=== PATIENT | female | born 1970 | race Caucasian/White ===

== ENCOUNTER → 2024-05-19 14:10 | Outpatient (REF) | payer OTHER, SELFPAY | LOC: WDC 14:10 | PROVIDERS: ATTENDING PHYSICIAN Family Medicine | DX: Z12.31 Encounter for screening mammogram for malignant neoplasm of breast (principal) | CPT/HCPCS: 77063; 77067 ==

== ENCOUNTER → 2024-05-27 09:17 | Outpatient (REF) | payer OTHER, SELFPAY | LOC: WDC 09:17 | PROVIDERS: ATTENDING PHYSICIAN Family Medicine | DX: R92.8 Other abnormal and inconclusive findings on diagnostic imaging of breast (principal) | CPT/HCPCS: 76642 ==

== ENCOUNTER 2024-08-16 00:24 | Emergency (ER) | payer OTHER, SELFPAY ==
[2024-08-16 00:24] VITALS: BMI 25.9
[2024-08-16 00:25] VITALS: BP 120/72
--- NOTE | 2024-08-16 01:02 | ED.GENMED ---
History of Present Illness
General
Chief Complaint: Suicidal Ideation
Source: patient
Time Seen by Provider: 08/16/24 01:01
History of Present Illness
History of Present Illness:
54-year-old female with past medical history of alcohol abuse, anxiety and depression presenting to the emergency department for evaluation after her therapist recommended she come to the emergency department for possible inpatient management of
depression. Patient states that while she does not have any active suicidal plan she has often felt that she would be better off gone or . She has had general thoughts of suicide but no specific plan or intent to carry through with them. No
physical complaints at this time. Denies any homicidal ideations, auditory or visual hallucinations. Patient denies any current alcohol or substance abuse.
Past History
Past History
ED Past Medical History: Psychiatric
ED Past Surgical History: Gynecological
Social History
Tobacco: Non-smoker
Alcohol: Former
Drug: None
Personal:
Living: with family
Review of Systems
Review of Systems
All Other Systems: ROS reviewed and negative except as documented in HPI and ROS
Phy Exam
Physical Exam
Physical Exam:
GENERAL: Alert , tearful but appropriate
EYE: conjunctiva clear
Head: Normocephalic atraumatic
NECK: Supple,
ENT: mmm.
LUNGS: no acute respiratory distress
NEUROLOGICAL: Alert and oriented
SKIN: Warm and dry, skin intact.
MUSCULOSKELETAL: well perfused.
PSYCH: Normal and appropriate interaction.
Scores
Heart Failure Risk
Heart Failure Risk Score: Not Applicable
Heart Score for Chest Pain Patients
STEMI patient?: Not applicable
Withdrawal Assessment of Alcohol
Withdrawal Assessment Completed?: Not applicable
Course
Orders/Labs/Results
Orders:
Orders
08/16/24 00:30
1:1 Observation - Suicide/ Violent Behavior As Directed
Crisis Consult Urgent
Reason for Consult: SENT IN BY THERAPIST FOR EXTREME DEPRESSION
08/16/24 00:54
Crisis Consult Urgent
Reason for Consult: +SI
Test Result ONCE
08/16/24 00:58
Fentanyl, Urine Urgent
Urinalysis Reflex To Culture Urgent
Date Specimen was Collected: 08/16/24
Time Specimen was Collected: 00:55
Urine Drug Abuse Screen Urgent
Date Specimen was Collected: 08/16/24
Time Specimen was Collected: 00:54
08/16/24 01:08
Alcohol Urgent
Basic Metabolic Panel Urgent
Complete Blood Count/With Diff Urgent
HCG, Serum Qualitative Screen Urgent
Comment: Notify provider if positive test present
Abnormal Lab Results
08/16/24 08/16/24
00:58 01:08
MCH 31.8 H pg
(27.0-31.0)
BUN 5 L mg/dl
(7-17)
Glucose 125 H mg/dl
(70-99)
U Benzodiazepines Scrn Positive H
(Negative)
08/16/24 01:08
08/16/24 01:08
Vital Signs
Initial and Last Documented VS:
Initial Vital Signs
Temp Pulse Resp BP Pulse Ox
97.4 F 84 22 120/72 100
08/16/24 00:25 08/16/24 00:25 08/16/24 00:25 08/16/24 00:25 08/16/24 00:25
Last Documented Vital Signs
Temp Pulse Resp BP Pulse Ox
97.4 F 84 22 120/72 100
08/16/24 00:25 08/16/24 00:25 08/16/24 00:25 08/16/24 00:25 08/16/24 00:25
MDM/Problems Addressed
MDM/Problems Addressed:
54-year-old female presenting to the emergency department for evaluation at the request of her psychiatrist for inpatient management of her depression. Patient does admit to suicidal ideations but without plan or intent. No physical concerns at
this time. Crisis consult ordered. Patient to be kept on a one-to-one observation for safety. Disposition pending crisis evaluation.
*Pulse Oximetry
Patient hypoxic: no
*Critical Care Note
Total Time (30-74mins, 75-104mins- exclusive of procedures): Not Applicable
Data Reviewed
Review of Other/Old Records Reveals: Records
Patient Management
Discussion with other providers: Other
Escalation/DeEscalation of care consider admission/obs:
Patient evaluated by Melissa Rudd and ultimately prefers outpatient program. She was offered inpatient but declines. Patient has good insight in regards to her depression. She has expressed generalized thoughts of self harm but has no plan nor
intent. Multiple safety measures in place and has outpatient follow up arranged. Aware of return precautions to the ED
ED Attending Note
-
Portions of this chart may have been created with voice recognition software.� Occasional wrong word or��sound alike� substitutions may have occurred due to the inherent limitations of voice recognition software.
Discharge Plan
Departure
Patient Disposition: Home (Routine Discharge)
Date of Disposition: 08/16/24
Time of Disposition: 02:04
Patient with high blood pressure during this ER visit?: No
Discharge Problem:
Depression
Instructions: Depression, Adult (DC)
Prescriptions:
No Action
cetirizine 10 MG tablet
10 mg PO DAILY
lorazepam 1 MG tablet
1 mg PO .EVERY OTHER DAY PRN (Reason: anxiety)
sertraline 50 MG tablet
50 mg PO DAILY
Referrals:
UNKNOWN - PT NOT,INTERVIEWE [Family Provider] -
Interventions
Interventions:
*Risk Screen - Suicide Last Done: 08/16/24 00:25
*General Assessment Last Done: 08/16/24 01:02
*Neglect/Abuse Screening Last Done: 08/16/24 00:25
*ED COVID-19 Vaccine History Last Done: 08/16/24 01:02
*Nursing Disposition Last Done: 08/16/24 02:18
ED-Psychological Assessment Last Done: 08/16/24 01:09
Discharge Date and Time
Discharge Date/Time: 08/16/24 02:19
Print Language: AMHARIC
[2024-08-16 01:17] LABS: % Basophils 0.8 % (0-2); % Immature Granulocytes 0.2 % (0-0.5); % Lymphocytes 30.7 % (20.5-51.1); % Monocytes 8.5 % (1.7-9.3); % Neutrophils 58.8 % (42.2-75.2); Absolute Eosinophils 0.1 10^3/uL (0-0.7); Absolute Lymphocytes 1.5 10^3/uL (1.2-3.4); Absolute Monocytes 0.4 10^3/uL (0.1-0.6); Absolute Neutrophils 2.8 10^3/uL (1.4-6.5); Hemoglobin 14.2 g/dL (12.0-16.0); Mean Corp Hgb Conc. 34.6 g/dL (33.0-37.0); Mean Corpuscular Hgb 31.8 pg (27.0-31.0); Mean Corpuscular Volume 91.7 fL (81.0-99.0); Nucleated Red Blood Cells % 0 %; Platelet Count 315 10^3/uL (130-400); Red Blood Cell Count 4.47 10^6/uL (4.20-5.40); Red Cell Dist. Width 12.2 % (11.5-14.5); White Blood Cell Count 4.8 10^3/uL (4.8-10.8)
[2024-08-16 01:21] LABS: Urine Albumin Trace (Neg - Trace); Urine Bilirubin Negative (Negative); Urine Character Slightly Cloudy (Clear); Urine Color Yellow; Urine Glucose Negative (Negative); Urine Ketone Negative (Negative); Urine Leukocyte Negative (Negative); Urine Nitrite Negative (Negative); Urine Occult Blood Negative (Negative); Urine Specific Gravity 1.015 (<1.030); Urine Urobilinogen Negative (Neg - 1+)
[2024-08-16 01:32] LABS: Amphetamines Negative (Negative); Barbiturates Negative (Negative); Benzodiazepines Positive (Negative); Buprenorphine Negative (Negative); Cocaine Negative (Negative); Marijuana Negative (Negative); Methadone Negative (Negative); Methamphetamines Negative (Negative); Opiates Negative (Negative); Phencyclidine Negative (Negative); Tricyclic Antidepressants Negative (Negative)
[2024-08-16 01:34] LABS: HCG, Serum Qualitative Screen Negative
[2024-08-16 01:37] LABS: Blood Urea Nitrogen 5 mg/dl (7-17); Calcium 9.5 mg/dl (8.4-10.2); Carbon Dioxide 27 mmol/L (22-30); Chloride 101 mmol/L (98-107); Estimated Creatinine Clearance 89 ml/min; Glucose 125 mg/dl (70-99); Potassium 3.8 mmol/L (3.5-5.1); Sodium 140 mmol/L (135-145); eGFR > 60.00
[2024-08-16 01:55] LABS: Fentanyl, Urine Negative (Negative)
[2024-08-16 02:09] LABS: Alcohol None Detected
== END 2024-08-16 02:19 | disposition home or self-care (01) ==
LOC: EMR 00:24
PROVIDERS: EMERGENCY PHYSICIAN Student in an Organized Health Care Education/Training Program
DX: F32.A Depression, unspecified (principal); F41.9 Anxiety disorder, unspecified; R45.851 Suicidal ideations
CPT/HCPCS: 99283; 80048; 80306; 80307; 81003; 82077; 84703; 85025

== ENCOUNTER → 2025-05-25 11:22 | Outpatient (REF) | payer OTHER, SELFPAY | LOC: WDC 11:22 | PROVIDERS: ATTENDING PHYSICIAN Family Medicine | DX: Z12.31 Encounter for screening mammogram for malignant neoplasm of breast (principal) | CPT/HCPCS: 77063; 77067 ==